=== PATIENT | male | born 1985 | race Hispanic/Latino ===

== ENCOUNTER 2019-09-17 16:49 | Inpatient (IN) | payer OTHER, SELFPAY ==
[~2019-09-17] VITALS: Ht 165.1 cm; Wt 92.1 kg
[2019-09-17 17:14] LABS: BASOPHILS % (AUTO) 0.3 % (0.0-5.0); EOSINOPHILS % (AUTO) 0.2 % (0.0-8.0); HEMATOCRIT 48.7 % (42-54); LYMPHOCYTES % (AUTO) 14.8 % (21.0-51.0); MEAN CORPUSCULAR HEMOGLOBIN 31.4 pg (27.0-33.0); MEAN CORPUSCULAR HGB CONC 35.3 g/dL (32.0-36.0); MEAN CORPUSCULAR VOLUME 88.9 fL (79-99); MONOCYTES % (AUTO) 2.2 % (3.0-13.0); PLATELET COUNT (AUTO) 195 K/uL (130-400); RED BLOOD CELL COUNT(AUTO) 5.48 MIL/uL (4.50-6.20); WHITE BLOOD COUNT (AUTO) 5.8 K/uL (4.8-10.8)
[2019-09-17 17:21] LABS: CARBON DIOXIDE 25 mmol/L (21-32); CHLORIDE 96 mmol/L (101-111); CREATININE 1.2 mg/dL (0.5-1.5); GLOMERULAR FILTR. RATE CALC 73 mL/min (>60); GLUCOSE,RANDOM 150 mg/dL (70-105); POTASSIUM 3.4 mmol/L (3.5-5.1); SODIUM SERUM 132 mmol/L (136-145); UREA NITROGEN, BLOOD 11 mg/dL (7-18)
[2019-09-17 17:24] LABS: INR 0.88 (0.85-1.15); PARTIAL THROMBOPLASTIN TIME 25.9 SEC (26.3-35.5); PROTHROMBIN TIME 9.6 SEC (9.6-11.6)
[2019-09-17] MEDS ORDERED: ALBUTEROL INHALER 90MCG/INH IH ONE (17:27)
[2019-09-17] MEDS ORDERED: METHYLPREDNISOLONE SOD SUCC 40MG/ML 1ML ONE (17:27)
[2019-09-17] MEDS ORDERED: POTASSIUM BICARB/CIT AC 25 MEQ TABLET.EFF ONE (17:27)
[2019-09-17] MEDS ORDERED: AZITHROMYCIN 500MG+NS 250ML 250 ML IV ONE (17:27)
[2019-09-17] MEDS ORDERED: ACETAMINOPHEN EXTRA STRENGTH 500 MG TABLET ONE (17:28)
[2019-09-17] MEDS ORDERED: CEFTRIAXONE SODIUM 1 GM ONE (17:28)
[2019-09-17 17:32] LABS: ALANINE AMINOTRANSFERASE 71 U/L (12-78); ALBUMIN 3.4 g/dL (3.5-5.0); ASPARTATE AMINOTRANSFERASE 72 U/L (10-37); BILIRUBIN,TOTAL 0.7 mg/dL (0.2-1.0); CREATINE KINASE, TOTAL 97 U/L (21-232); MYOGLOBIN 35 ng/mL (10-92); TROPONIN I < 0.04 ng/mL (0.00-0.06)
[2019-09-17] MEDS: SODIUM CHLORIDE 0.9% 1000ML 1,000 ML IV SCH (19:37)
[2019-09-17] MEDS ORDERED: ONDANSETRON HCL 4 MG/2 ML VIAL IV PRN (19:45)
[2019-09-17] MEDS ORDERED: ACETAMINOPHEN 325 MG TAB PO PRN ×2 (19:45)
[2019-09-17] MEDS ORDERED: DIPHENHYDRAMINE HCL 25 MG CAPSULE PO PRN (19:45)
[2019-09-17] MEDS ORDERED: NITROGLYCERIN 0.4 MG SL TAB SL PRN (19:45)
[2019-09-17] MEDS ORDERED: SODIUM CHLORIDE 0.9% 1000ML 1,000 ML IV SCH ×3 (19:45→20:00)
[2019-09-17 19:49] LABS: ABG BASE EXCESS -4.6 mmol/L (-2.0-3.0); ABG OXYGEN SATURATION 84.1 % (95.0-99.0); ABG PCO2 31 mmHg (35-48)
[2019-09-17] MEDS ORDERED: IOHEXOL 350 MG/ML 100ML INFUS..BTL IV ONE (19:51)
[2019-09-17 19:54] LABS: HEMOGLOBIN A1C 6.2 % (4.0-6.0)
[2019-09-17 20:16] LABS: APPEARANCE,URINE Clear (CLEAR); BILIRUBIN,URINE Negative (NEGATIVE); COLOR,URINE Yellow (YELLOW); GLUCOSE, URINE (UA) Negative (NEGATIVE); KETONES,URINE Negative (NEGATIVE); LEUKOCYTE ESTERASE ,URINE Negative (NEGATIVE); NITRATE,URINE Negative (NEGATIVE); OCCULT BLOOD,URINE Negative (NEGATIVE); PH,URINE 6.5 (5.0-8.0); PROTEIN,URINE Negative (NEGATIVE); UROBILINOGEN,URINE 0.2 mg/dL (0.2-1.0)
[2019-09-17] MEDS: FAMOTIDINE 20MG TAB 20 MG TAB PO SCH (21:00)
[2019-09-17 21:35] LABS: CREATINE KINASE, TOTAL 77 U/L (21-232); LACTATE DEHYDROGENASE 799 U/L (81-234); MYOGLOBIN 41 ng/mL (10-92); TRIGLYCERIDES 179 mg/dL (30-200); TROPONIN I < 0.04 ng/mL (0.00-0.06)
[2019-09-18] MEDS ORDERED: ONDANSETRON HCL 4 MG/2 ML VIAL ONE (00:52)
[2019-09-18] MEDS: METHYLPREDNISOLONE SOD SUCC 40MG/ML 1ML IVP SCH ×3 (02:00→18:00)
[2019-09-18] MEDS ORDERED: METHYLPREDNISOLONE SOD SUCC 40MG/ML 1ML ONE ×3 (02:08→16:40)
[2019-09-18] MEDS: SODIUM CHLORIDE 0.9% 1000ML 1,000 ML IV SCH ×2 (05:37→15:37)
[2019-09-18 06:31] LABS: ABG BASE EXCESS -4.5 mmol/L (-2.0-3.0); ABG HCO3 19.2 mmol/L (21.0-28.0); ABG OXYGEN SATURATION 87.4 % (95.0-99.0); ABG PCO2 32 mmHg (35-48)
[2019-09-18 07:19] LABS: HEMATOCRIT 46.7 % (42-54); MEAN CORPUSCULAR HEMOGLOBIN 30.7 pg (27.0-33.0); MEAN CORPUSCULAR VOLUME 90.2 fL (79-99); PLATELET COUNT (AUTO) 206 K/uL (130-400); RED BLOOD CELL COUNT(AUTO) 5.18 MIL/uL (4.50-6.20); RED CELL DISTRIBUTION WIDTH 13.2 % (11.0-15.5)
[2019-09-18 07:47] LABS: ALBUMIN 2.7 g/dL (3.5-5.0); BILIRUBIN,TOTAL 0.5 mg/dL (0.2-1.0); CREATININE 1.1 mg/dL (0.5-1.5); POTASSIUM 5.3 mmol/L (3.5-5.1); TOTAL PROTEIN, SERUM 6.8 g/dL (6.0-8.3)
[2019-09-18 08:42] LABS: BAND NEUTROPHILS % (MANUAL) 1 % (0-2); LYMPHOCYTES % (MANUAL) 10 % (22-44); MAN.DIFF COMMENT-IMPRESSION MANUAL DIFFERENTIAL; MONOCYTES % (MANUAL) 2 % (2-9); SEGMENTED NEUTROPHILS % 87 % (40-70)
[2019-09-18 08:47] LABS: PLATELET MORPHOLOGY COMMENT ADEQUATE
[2019-09-18] MEDS ORDERED: AZITHROMYCIN 500MG+NS 250ML 250 ML IV ONE (08:54)
[2019-09-18] MEDS ORDERED: CEFTRIAXONE SODIUM 1 GM ONE (08:54)
[2019-09-18] MEDS ORDERED: ENOXAPARIN SODIUM 40 MG/0.4 ML SYRINGE SQ ONE (08:54)
[2019-09-18] MEDS ORDERED: SODIUM CHLORIDE 0.9% 50 ML IV ONE (08:55)
[2019-09-18] MEDS: FAMOTIDINE 20MG TAB 20 MG TAB PO SCH ×2 (09:00→21:00)
[2019-09-18] MEDS: CEFTRIAXONE SODIUM 500 MG VIAL IV SCH (09:00)
[2019-09-18] MEDS: AZITHROMYCIN 500MG+NS 250ML 250 ML IV SCH (09:00)
[2019-09-18] MEDS ORDERED: ENOXAPARIN SODIUM 40 MG/0.4 ML SYRINGE SQ SCH (09:00)
--- NOTE | 2019-09-18 13:33 | NUR ---
[facility] CM spoke to spouse discussed dc plans. Pt is independent prior to admission, lives at home with spouse Denies any equipments/services. Feels safe to go back home, still drives, family able to assist with transportation and needs as necessary. DC plan to home once stable. Pt is a self pay, HAC assisting. CM to cont to follow up. Addendum: 09/18/19 at 1336 by RASHEED URBAN LVN CM Amended: Links added.
[2019-09-19] MEDS ORDERED: METHYLPREDNISOLONE SOD SUCC 40MG/ML 1ML ONE ×3 (01:05→15:49)
[2019-09-19] MEDS: SODIUM CHLORIDE 0.9% 1000ML 1,000 ML IV SCH ×3 (01:37→21:37)
[2019-09-19] MEDS: METHYLPREDNISOLONE SOD SUCC 40MG/ML 1ML IVP SCH ×3 (02:00→18:00)
[2019-09-19 04:50] LABS: BASOPHILS % (AUTO) 0.2 % (0.0-5.0); HEMATOCRIT 46.5 % (42-54); LYMPHOCYTES % (AUTO) 7.4 % (21.0-51.0); MEAN CORPUSCULAR HEMOGLOBIN 31.1 pg (27.0-33.0); MEAN CORPUSCULAR HGB CONC 34.2 g/dL (32.0-36.0); MEAN CORPUSCULAR VOLUME 90.8 fL (79-99); MONOCYTES % (AUTO) 2.6 % (3.0-13.0); NEUTROPHILS % (AUTO) 88.7 % (40.0-77.0); PLATELET COUNT (AUTO) 250 K/uL (130-400); RED BLOOD CELL COUNT(AUTO) 5.12 MIL/uL (4.50-6.20); RED CELL DISTRIBUTION WIDTH 13.2 % (11.0-15.5); WHITE BLOOD COUNT (AUTO) 9.5 K/uL (4.8-10.8)
[2019-09-19 05:36] LABS: ALBUMIN 2.7 g/dL (3.5-5.0); BILIRUBIN,TOTAL 0.5 mg/dL (0.2-1.0); CREATININE 1.1 mg/dL (0.5-1.5); CRP QUANTITATIVE 84.1 mg/L (0.00-9.0); POTASSIUM 4.6 mmol/L (3.5-5.1); TOTAL PROTEIN, SERUM 6.8 g/dL (6.0-8.3)
[2019-09-19 07:35] LABS: ABG BASE EXCESS -3.4 mmol/L (-2.0-3.0); ABG HCO3 19.6 mmol/L (21.0-28.0); ABG OXYGEN SATURATION 78.8 % (95.0-99.0); ABG PCO2 30 mmHg (35-48)
[2019-09-19] MEDS: AZITHROMYCIN 500MG+NS 250ML 250 ML IV SCH (09:00)
[2019-09-19] MEDS: CEFTRIAXONE SODIUM 500 MG VIAL IV SCH (09:00)
[2019-09-19] MEDS: FAMOTIDINE 20MG TAB 20 MG TAB PO SCH ×2 (09:00→21:00)
[2019-09-19] MEDS ORDERED: FAMOTIDINE/PF 20 MG/2 ML VIAL IV ONE (09:18)
[2019-09-19] MEDS ORDERED: CEFTRIAXONE SODIUM 1 GM ONE (09:18)
[2019-09-19] MEDS ORDERED: ENOXAPARIN SODIUM 40 MG/0.4 ML SYRINGE SQ ONE (09:18)
[2019-09-19] MEDS ORDERED: AZITHROMYCIN 500MG+NS 250ML 250 ML IV ONE (09:18)
[2019-09-19 19:41] LABS: ABG BASE EXCESS -0.4 mmol/L (-2.0-3.0); ABG HCO3 23.2 mmol/L (21.0-28.0); ABG OXYGEN SATURATION 82.6 % (95.0-99.0); ABG PCO2 35 mmHg (35-48)
[2019-09-19] MEDS: ENOXAPARIN SODIUM 80 MG/0.8 ML SQ SCH (21:00)
[2019-09-20] VITALS (7 sets, daily range): BP systolic 135–157; BP diastolic 20–95
[2019-09-20] MEDS ORDERED: METHYLPREDNISOLONE SOD SUCC 40MG/ML 1ML ONE (00:42)
[2019-09-20] MEDS: SODIUM CHLORIDE 0.9% 1000ML 1,000 ML IV SCH ×2 (04:01→04:02)
[2019-09-20] MEDS: METHYLPREDNISOLONE SOD SUCC 40MG/ML 1ML IVP SCH ×3 (04:02→16:43)
[2019-09-20 08:29] LABS: BASOPHILS % (AUTO) 0.6 % (0.0-5.0); EOSINOPHILS % (AUTO) 0.8 % (0.0-8.0); HEMATOCRIT 45.8 % (42-54); LYMPHOCYTES % (AUTO) 9.2 % (21.0-51.0); MEAN CORPUSCULAR HEMOGLOBIN 31.7 pg (27.0-33.0); MEAN CORPUSCULAR HGB CONC 34.9 g/dL (32.0-36.0); MEAN CORPUSCULAR VOLUME 90.7 fL (79-99); MONOCYTES % (AUTO) 2.9 % (3.0-13.0); NEUTROPHILS % (AUTO) 84.5 % (40.0-77.0); PLATELET COUNT (AUTO) 186 K/uL (130-400); RED BLOOD CELL COUNT(AUTO) 5.05 MIL/uL (4.50-6.20); RED CELL DISTRIBUTION WIDTH 13.3 % (11.0-15.5); WHITE BLOOD COUNT (AUTO) 8.9 K/uL (4.8-10.8)
[2019-09-20 08:47] LABS: ALBUMIN 2.7 g/dL (3.5-5.0); BILIRUBIN,TOTAL 0.7 mg/dL (0.2-1.0); CREATININE 1.1 mg/dL (0.5-1.5); CRP QUANTITATIVE 34.5 mg/L (0.00-9.0); POTASSIUM 4.1 mmol/L (3.5-5.1); TOTAL PROTEIN, SERUM 6.3 g/dL (6.0-8.3)
[2019-09-20] MEDS: ENOXAPARIN SODIUM 80 MG/0.8 ML SQ SCH (08:59)
[2019-09-20] MEDS: FAMOTIDINE 20MG TAB 20 MG TAB PO SCH ×2 (08:59→20:11)
[2019-09-20] MEDS: CEFTRIAXONE SODIUM 500 MG VIAL IV SCH (08:59)
[2019-09-20] MEDS: AZITHROMYCIN 500MG+NS 250ML 250 ML IV SCH (08:59)
--- NOTE | 2019-09-20 11:00 | NUR ---
PT VISIBLY SOB AT THE MOMENT OF EVALUATION, WAS EDUCATED ABOUT TREATMENT AND ENCOURAGE TO LAY IN PRONE POSITION FOR A BETTER GAS EXCHANGE IN HIS LUNGS AND FURTHER IMPROVEMENT OF HIS CONDITION.
[2019-09-20] MEDS ORDERED: REMDESIVIR (INVESTIGATIONAL) 100 MG/250ML NS IV SCH (11:15)
--- NOTE | 2019-09-20 14:30 | NUR ---
DR. VALERIO ROUND AND EVALUATED THE PT.
[2019-09-20] MEDS ORDERED: CALCIUM CARBON 500MG CHEW TAB PO SCH (15:45)
[2019-09-20] MEDS ORDERED: CALCIUM CARBON 500MG CHEW TAB PO PRN (15:45)
[2019-09-20] MEDS: ENOXAPARIN SODIUM 100 MG/1 ML SQ SCH (20:10)
[2019-09-20] MEDS ORDERED: ENOXAPARIN SODIUM 1 MG/KG SQ SCH (21:00)
[2019-09-21] MEDS: METHYLPREDNISOLONE SOD SUCC 40MG/ML 1ML IVP SCH ×2 (02:10→09:04)
[2019-09-21] MEDS: ALBUTEROL INHALER 90MCG/INH IH SCH ×5 (02:56→16:29)
[2019-09-21 03:36] VITALS: BP 150/83
[2019-09-21] MEDS: SODIUM CHLORIDE 0.9% 1000ML 1,000 ML IV SCH ×2 (03:37→06:08)
--- NOTE | 2019-09-21 05:10 | NUR ---
PT SOB AT REST. CONT ON HIGH FLOW. STATES HE IS UNABLE TO AMBULATE TO RR. ONLY BEDSIDE COMMODE. FEELS VERY WEAK.
[2019-09-21 06:09] LABS: BASOPHILS % (AUTO) 0.5 % (0.0-5.0); EOSINOPHILS % (AUTO) 0.2 % (0.0-8.0); HEMATOCRIT 44.5 % (42-54); LYMPHOCYTES % (AUTO) 8.4 % (21.0-51.0); MEAN CORPUSCULAR HEMOGLOBIN 30.8 pg (27.0-33.0); MEAN CORPUSCULAR HGB CONC 34.6 g/dL (32.0-36.0); MONOCYTES % (AUTO) 3.9 % (3.0-13.0); NEUTROPHILS % (AUTO) 82.4 % (40.0-77.0); PLATELET COUNT (AUTO) 220 K/uL (130-400); RED CELL DISTRIBUTION WIDTH 13.1 % (11.0-15.5); WHITE BLOOD COUNT (AUTO) 10.5 K/uL (4.8-10.8)
[2019-09-21 06:19] LABS: ALBUMIN 2.7 g/dL (3.5-5.0); BILIRUBIN,TOTAL 0.9 mg/dL (0.2-1.0); CREATININE 0.9 mg/dL (0.5-1.5); CRP QUANTITATIVE 18.5 mg/L (0.00-9.0); POTASSIUM 3.9 mmol/L (3.5-5.1); TOTAL PROTEIN, SERUM 6.5 g/dL (6.0-8.3)
[2019-09-21] MEDS ORDERED: CEFTRIAXONE SODIUM 1 GM ONE (08:13)
[2019-09-21] MEDS ORDERED: FAMOTIDINE/PF 20 MG/2 ML VIAL IV ONE (08:16)
[2019-09-21 09:00] VITALS: BP 155/88
[2019-09-21] MEDS: FAMOTIDINE 20MG TAB 20 MG TAB PO SCH (09:00)
[2019-09-21] MEDS: CEFTRIAXONE SODIUM 500 MG VIAL IV SCH (09:00)
[2019-09-21] MEDS: AZITHROMYCIN 500MG+NS 250ML 250 ML IV SCH (09:03)
[2019-09-21] MEDS: ENOXAPARIN SODIUM 100 MG/1 ML SQ SCH ×2 (09:04→20:58)
[2019-09-21] MEDS: METHYLPREDNISOLONE SOD SUCC 125MG/2ML VIAL IVP SCH ×3 (10:00→20:58)
[2019-09-21 12:48] VITALS: BP 151/86
[2019-09-21 16:23] VITALS: BP 142/79
[2019-09-21 20:00] VITALS: BP 147/77
[2019-09-22] VITALS (7 sets, daily range): BP systolic 119–158; BP diastolic 68–98
[2019-09-22] MEDS: ALBUTEROL INHALER 90MCG/INH IH SCH ×6 (02:38→20:00)
[2019-09-22] MEDS: METHYLPREDNISOLONE SOD SUCC 125MG/2ML VIAL IVP SCH ×4 (04:42→22:00)
[2019-09-22 04:56] LABS: BASOPHILS % (AUTO) 0.6 % (0.0-5.0); HEMATOCRIT 45.6 % (42-54); LYMPHOCYTES % (AUTO) 11.3 % (21.0-51.0); MEAN CORPUSCULAR HEMOGLOBIN 31.1 pg (27.0-33.0); MEAN CORPUSCULAR HGB CONC 35.1 g/dL (32.0-36.0); MEAN CORPUSCULAR VOLUME 88.7 fL (79-99); NEUTROPHILS % (AUTO) 76.1 % (40.0-77.0); NUCLEATED RED BLOOD CELLS 0.2 % (0.0-0.19); PLATELET COUNT (AUTO) 252 K/uL (130-400); RED BLOOD CELL COUNT(AUTO) 5.14 MIL/uL (4.50-6.20); RED CELL DISTRIBUTION WIDTH 12.8 % (11.0-15.5); WHITE BLOOD COUNT (AUTO) 8.9 K/uL (4.8-10.8)
[2019-09-22 05:14] LABS: CRP QUANTITATIVE 24.9 mg/L (0.00-9.0); POTASSIUM 4.2 mmol/L (3.5-5.1)
[2019-09-22] MEDS: AZITHROMYCIN 500MG+NS 250ML 250 ML IV SCH (08:24)
[2019-09-22] MEDS: PANTOPRAZOLE SODIUM 40 MG TABLET.DR PO SCH (08:24)
[2019-09-22] MEDS: ENOXAPARIN SODIUM 100 MG/1 ML SQ SCH ×2 (08:25→21:00)
[2019-09-22] MEDS: CEFTRIAXONE SODIUM 500 MG VIAL IV SCH (13:50)
[2019-09-23] MEDS: ALBUTEROL INHALER 90MCG/INH IH SCH ×7 (00:45→23:39)
[2019-09-23 04:02] VITALS: BP 148/80
[2019-09-23] MEDS: METHYLPREDNISOLONE SOD SUCC 125MG/2ML VIAL IVP SCH ×4 (04:12→22:18)
[2019-09-23 05:05] LABS: BASOPHILS % (AUTO) 0.4 % (0.0-5.0); HEMATOCRIT 43.7 % (42-54); LYMPHOCYTES % (AUTO) 8.2 % (21.0-51.0); MEAN CORPUSCULAR HEMOGLOBIN 30.4 pg (27.0-33.0); MEAN CORPUSCULAR HGB CONC 34.6 g/dL (32.0-36.0); MEAN CORPUSCULAR VOLUME 88.1 fL (79-99); MONOCYTES % (AUTO) 3.4 % (3.0-13.0); NUCLEATED RED BLOOD CELLS 0.3 % (0.0-0.19); PLATELET COUNT (AUTO) 273 K/uL (130-400); RED BLOOD CELL COUNT(AUTO) 4.96 MIL/uL (4.50-6.20); RED CELL DISTRIBUTION WIDTH 12.9 % (11.0-15.5); WHITE BLOOD COUNT (AUTO) 11.6 K/uL (4.8-10.8)
[2019-09-23 08:39] VITALS: BP 146/87
[2019-09-23] MEDS: CEFTRIAXONE SODIUM 500 MG VIAL IV SCH (09:21)
[2019-09-23] MEDS: AZITHROMYCIN 500MG+NS 250ML 250 ML IV SCH (09:23)
[2019-09-23] MEDS: PANTOPRAZOLE SODIUM 40 MG TABLET.DR PO SCH (09:23)
[2019-09-23] MEDS: ENOXAPARIN SODIUM 100 MG/1 ML SQ SCH ×2 (09:25→20:35)
[2019-09-23 12:26] VITALS: BP 155/83
[2019-09-23 16:39] VITALS: BP 146/87
[2019-09-23 19:58] VITALS: BP 146/78
[2019-09-24] VITALS: BP 137/95
[2019-09-24 03:50] VITALS: BP 132/74
[2019-09-24] MEDS: METHYLPREDNISOLONE SOD SUCC 125MG/2ML VIAL IVP SCH ×4 (05:29→23:51)
[2019-09-24] MEDS: ALBUTEROL INHALER 90MCG/INH IH SCH ×5 (05:29→20:00)
--- NOTE | 2019-09-24 06:51 | NUR ---
patient refused transfusion, explained benefits but states he still needs to think about it and will decide if he will go through with the transfusion. will pass to the am nurse
[2019-09-24 07:55] VITALS: BP 126/79
[2019-09-24] MEDS: AZITHROMYCIN 500MG+NS 250ML 250 ML IV SCH (09:12)
[2019-09-24] MEDS: CEFTRIAXONE SODIUM 500 MG VIAL IV SCH (09:13)
[2019-09-24] MEDS: PANTOPRAZOLE SODIUM 40 MG TABLET.DR PO SCH (09:13)
[2019-09-24] MEDS: ENOXAPARIN SODIUM 100 MG/1 ML SQ SCH ×2 (09:14→21:39)
[2019-09-24 10:26] LABS: HEMATOCRIT 45.4 % (42-54); MEAN CORPUSCULAR HEMOGLOBIN 31.5 pg (27.0-33.0); MEAN CORPUSCULAR HGB CONC 35.5 g/dL (32.0-36.0); MEAN CORPUSCULAR VOLUME 88.8 fL (79-99); NUCLEATED RED BLOOD CELLS 0.2 % (0.0-0.19); PLATELET COUNT (AUTO) 290 K/uL (130-400); RED BLOOD CELL COUNT(AUTO) 5.11 MIL/uL (4.50-6.20); RED CELL DISTRIBUTION WIDTH 12.8 % (11.0-15.5)
[2019-09-24 10:31] LABS: CARBON DIOXIDE 27 mmol/L (21-32); CHLORIDE 101 mmol/L (101-111); CREATININE 1.1 mg/dL (0.5-1.5); GLOMERULAR FILTR. RATE CALC 81 mL/min (>60); GLUCOSE,RANDOM 169 mg/dL (70-105); SODIUM SERUM 135 mmol/L (136-145); UREA NITROGEN, BLOOD 23 mg/dL (7-18)
[2019-09-24 10:36] LABS: ALANINE AMINOTRANSFERASE 69 U/L (12-78); ALBUMIN 2.4 g/dL (3.5-5.0); ASPARTATE AMINOTRANSFERASE 34 U/L (10-37); BILIRUBIN,TOTAL 0.6 mg/dL (0.2-1.0); LACTATE DEHYDROGENASE 620 U/L (81-234)
[2019-09-24 10:37] LABS: CRP QUANTITATIVE < 2.00 mg/L (0.00-9.0)
[2019-09-24 10:41] LABS: EOSINOPHILS % (MANUAL) 1 % (1-6); LYMPHOCYTES % (MANUAL) 3 % (22-44); MAN.DIFF COMMENT-IMPRESSION MANUAL DIFFERENTIAL; MONOCYTES % (MANUAL) 10 % (2-9); SEGMENTED NEUTROPHILS % 86 % (40-70)
[2019-09-24 10:42] LABS: PLATELET MORPHOLOGY COMMENT ADEQUATE
[2019-09-24 11:49] VITALS: BP 107/61
[2019-09-24 17:24] VITALS: BP 150/85
[2019-09-24 20:00] VITALS: BP 146/80
[2019-09-25] VITALS: BP 127/80
[2019-09-25] MEDS: ALBUTEROL INHALER 90MCG/INH IH SCH ×6 (00:09→21:08)
[2019-09-25 04:00] VITALS: BP 122/70
[2019-09-25] MEDS: METHYLPREDNISOLONE SOD SUCC 125MG/2ML VIAL IVP SCH ×3 (04:28→21:00)
[2019-09-25 04:47] LABS: HEMATOCRIT 44.6 % (42-54); MEAN CORPUSCULAR HEMOGLOBIN 31.6 pg (27.0-33.0); MEAN CORPUSCULAR HGB CONC 35.9 g/dL (32.0-36.0); PLATELET COUNT (AUTO) 306 K/uL (130-400); RED BLOOD CELL COUNT(AUTO) 5.07 MIL/uL (4.50-6.20); RED CELL DISTRIBUTION WIDTH 12.9 % (11.0-15.5); WHITE BLOOD COUNT (AUTO) 9.3 K/uL (4.8-10.8)
[2019-09-25 05:00] LABS: ALBUMIN 2.5 g/dL (3.5-5.0); BILIRUBIN,TOTAL 0.7 mg/dL (0.2-1.0); CREATININE 0.9 mg/dL (0.5-1.5); CRP QUANTITATIVE 14.2 mg/L (0.00-9.0); POTASSIUM 4.2 mmol/L (3.5-5.1); TOTAL PROTEIN, SERUM 6.1 g/dL (6.0-8.3)
[2019-09-25 06:03] LABS: BAND NEUTROPHILS % (MANUAL) 3 % (0-2); LYMPHOCYTES % (MANUAL) 4 % (22-44); MONOCYTES % (MANUAL) 3 % (2-9); SEGMENTED NEUTROPHILS % 90 % (40-70)
[2019-09-25 06:04] LABS: MAN.DIFF COMMENT-IMPRESSION MANUAL DIFFERENTIAL
[2019-09-25 06:05] LABS: PLATELET MORPHOLOGY COMMENT ADEQUATE
[2019-09-25 08:27] VITALS: BP 122/87
[2019-09-25] MEDS ORDERED: SODIUM CHLORIDE 0.9% 250 ML IV ONE (09:33)
[2019-09-25] MEDS: CEFTRIAXONE SODIUM 500 MG VIAL IV SCH (09:47)
[2019-09-25] MEDS: PANTOPRAZOLE SODIUM 40 MG TABLET.DR PO SCH (09:48)
[2019-09-25] MEDS: ENOXAPARIN SODIUM 100 MG/1 ML SQ SCH ×2 (09:48→21:01)
--- NOTE | 2019-09-25 12:42 | NUR ---
RDSCREEN - LOS X 8 Pt admitted with CAP, positive for COVID-19. Pt with Heart Healthy diet order in place and tolerating with 100%PO intake. Pt with elevated BG, LDH, Ferritin, and abnormal LFT's. Antibiotics in place. Obesity Class I. Recommend 75gm CC diet modification Recommend 60mL ProMod Recommend 500mg Vitamin C (BID), 220mg ZnSO4 (QD). RD to continue to monitor. Please notify as additional nutrition concerns arise. Thank you.
[2019-09-25 12:53] VITALS: BP 120/86
[2019-09-25 15:46] VITALS: BP 127/82
[2019-09-25 21:00] VITALS: BP 145/86
[2019-09-26] MEDS: ALBUTEROL INHALER 90MCG/INH IH SCH ×6 (00:06→20:04)
[2019-09-26 00:50] VITALS: BP 148/96
[2019-09-26 04:54] VITALS: BP 121/78
[2019-09-26 07:21] LABS: BASOPHILS % (AUTO) 0.6 % (0.0-5.0); EOSINOPHILS % (AUTO) 0.3 % (0.0-8.0); HEMATOCRIT 44.9 % (42-54); LYMPHOCYTES % (AUTO) 10.3 % (21.0-51.0); MEAN CORPUSCULAR HEMOGLOBIN 30.8 pg (27.0-33.0); MONOCYTES % (AUTO) 4.4 % (3.0-13.0); NEUTROPHILS % (AUTO) 77.2 % (40.0-77.0); PLATELET COUNT (AUTO) 316 K/uL (130-400); RED CELL DISTRIBUTION WIDTH 13.1 % (11.0-15.5); WHITE BLOOD COUNT (AUTO) 11.5 K/uL (4.8-10.8)
[2019-09-26 07:46] LABS: ALANINE AMINOTRANSFERASE 94 U/L (12-78); ALBUMIN 2.7 g/dL (3.5-5.0); ASPARTATE AMINOTRANSFERASE 34 U/L (10-37); BILIRUBIN,TOTAL 0.8 mg/dL (0.2-1.0); CARBON DIOXIDE 26 mmol/L (21-32); CHLORIDE 102 mmol/L (101-111); GLOMERULAR FILTR. RATE CALC 90 mL/min (>60); GLUCOSE,RANDOM 146 mg/dL (70-105); LACTATE DEHYDROGENASE 502 U/L (81-234); POTASSIUM 4.6 mmol/L (3.5-5.1); SODIUM SERUM 136 mmol/L (136-145); TOTAL PROTEIN, SERUM 6.2 g/dL (6.0-8.3); UREA NITROGEN, BLOOD 23 mg/dL (7-18)
[2019-09-26 07:56] LABS: CRP QUANTITATIVE < 2.00 mg/L (0.00-9.0)
[2019-09-26 08:00] VITALS: BP 122/83
--- NOTE | 2019-09-26 08:00 | NUR ---
ASSESSMENT ENCOUNTERED PT IN SEMI TRUONG'S POSITION, A&OX3, CALM COOPERATIVE AND DOES NOT APPEAR TO BE IN ANY DISTRESS NOR ANY NEURO DEFICITS PRESENT. PT DENIES PAIN, SOB, NAUSEA. PT IS ON 2LNC WITH O2 SATS 85%, INCREASED TO 4LNC AND O2 SATS IMPROVED TO 89%, PT STATES HE CONTINUES TO FEEL COMFORTABLE BUT INFORMED HIM THAT HE WILL BE RETURNED TO [facility] FOR BETTER OXYGENATION, O2SATS WITH [facility] 91% AT REST. CALL LIGHT WITHIN REACH.
[2019-09-26] MEDS: ASCORBIC ACID 500 MG TAB PO SCH (08:03)
[2019-09-26] MEDS: ENOXAPARIN SODIUM 100 MG/1 ML SQ SCH ×2 (08:03→20:44)
[2019-09-26] MEDS: CEFTRIAXONE SODIUM 500 MG VIAL IV SCH (08:04)
[2019-09-26] MEDS: PANTOPRAZOLE SODIUM 40 MG TABLET.DR PO SCH (08:04)
[2019-09-26] MEDS: METHYLPREDNISOLONE SOD SUCC 125MG/2ML VIAL IVP SCH (08:04)
[2019-09-26 16:00] VITALS: BP 114/89
[2019-09-26 20:16] VITALS: BP 121/75
[2019-09-26] MEDS ORDERED: METHYLPREDNISOLONE SOD SUCC 40MG/ML 1ML IVP SCH (21:00)
[2019-09-27] MEDS: ALBUTEROL INHALER 90MCG/INH IH SCH ×6 (00:01→19:15)
[2019-09-27 01:11] VITALS: BP 141/84
[2019-09-27 04:13] VITALS: BP 109/62
[2019-09-27 06:14] LABS: HEMATOCRIT 47.3 % (42-54); MEAN CORPUSCULAR HGB CONC 34.9 g/dL (32.0-36.0); MEAN CORPUSCULAR VOLUME 88.9 fL (79-99); PLATELET COUNT (AUTO) 342 K/uL (130-400); RED BLOOD CELL COUNT(AUTO) 5.32 MIL/uL (4.50-6.20); RED CELL DISTRIBUTION WIDTH 13.2 % (11.0-15.5); WHITE BLOOD COUNT (AUTO) 10.9 K/uL (4.8-10.8)
[2019-09-27 07:55] LABS: LYMPHOCYTES % (MANUAL) 10 % (22-44); MAN.DIFF COMMENT-IMPRESSION MANUAL DIFFERENTIAL; MONOCYTES % (MANUAL) 8 % (2-9); PLATELET MORPHOLOGY COMMENT ADEQUATE; SEGMENTED NEUTROPHILS % 82 % (40-70)
[2019-09-27 08:00] VITALS: BP 115/73
[2019-09-27] MEDS: ASCORBIC ACID 500 MG TAB PO SCH (08:38)
[2019-09-27] MEDS: CEFTRIAXONE SODIUM 500 MG VIAL IV SCH (08:38)
[2019-09-27] MEDS: PANTOPRAZOLE SODIUM 40 MG TABLET.DR PO SCH (08:38)
[2019-09-27] MEDS: ENOXAPARIN SODIUM 100 MG/1 ML SQ SCH ×2 (08:39→20:34)
[2019-09-27] MEDS ORDERED: DEXAMETHASONE 4 MG TAB PO SCH (09:10)
[2019-09-27] MEDS: DEXAMETHASONE 4 MG TAB PO SCH ×2 (10:55→20:33)
[2019-09-27 11:42] VITALS: BP 104/64
[2019-09-27 12:06] LABS: ALBUMIN 2.9 g/dL (3.5-5.0); BILIRUBIN,TOTAL 0.9 mg/dL (0.2-1.0); CREATININE 0.9 mg/dL (0.5-1.5); CRP QUANTITATIVE 6.2 mg/L (0.00-9.0); POTASSIUM 4.3 mmol/L (3.5-5.1); TOTAL PROTEIN, SERUM 6.4 g/dL (6.0-8.3)
[2019-09-27 15:33] VITALS: BP 120/72
[2019-09-27 20:54] VITALS: BP 134/78
[2019-09-28] VITALS (7 sets, daily range): BP systolic 98–122; BP diastolic 59–77
[2019-09-28] MEDS: ALBUTEROL INHALER 90MCG/INH IH SCH ×6 (04:32→20:01)
[2019-09-28 06:34] LABS: HEMATOCRIT 46.6 % (42-54); MEAN CORPUSCULAR HEMOGLOBIN 30.5 pg (27.0-33.0); MEAN CORPUSCULAR HGB CONC 34.5 g/dL (32.0-36.0); MEAN CORPUSCULAR VOLUME 88.3 fL (79-99); PLATELET COUNT (AUTO) 362 K/uL (130-400); RED BLOOD CELL COUNT(AUTO) 5.28 MIL/uL (4.50-6.20); RED CELL DISTRIBUTION WIDTH 13.2 % (11.0-15.5); WHITE BLOOD COUNT (AUTO) 11.7 K/uL (4.8-10.8)
[2019-09-28 06:39] LABS: ALBUMIN 2.8 g/dL (3.5-5.0); BILIRUBIN,TOTAL 1.1 mg/dL (0.2-1.0); CREATININE 0.9 mg/dL (0.5-1.5); CRP QUANTITATIVE 2.4 mg/L (0.00-9.0); POTASSIUM 4.5 mmol/L (3.5-5.1); TOTAL PROTEIN, SERUM 6.5 g/dL (6.0-8.3)
[2019-09-28 07:13] LABS: BAND NEUTROPHILS % (MANUAL) 4 % (0-2); EOSINOPHILS % (MANUAL) 1 % (1-6); LYMPHOCYTES % (MANUAL) 13 % (22-44); MAN.DIFF COMMENT-IMPRESSION MANUAL DIFFERENTIAL; MONOCYTES % (MANUAL) 5 % (2-9); PLATELET MORPHOLOGY COMMENT ADEQUATE; REACTIVE LYMPHOCYTES 4 % (0-0); SEGMENTED NEUTROPHILS % 73 % (40-70)
[2019-09-28] MEDS: LEVOFLOXACIN 750 MG/D5W 150 ML 150 ML IV SCH (08:20)
[2019-09-28] MEDS: DEXAMETHASONE 4 MG TAB PO SCH (08:21)
[2019-09-28] MEDS: ENOXAPARIN SODIUM 100 MG/1 ML SQ SCH ×2 (08:21→20:38)
[2019-09-28] MEDS: PANTOPRAZOLE SODIUM 40 MG TABLET.DR PO SCH (08:21)
[2019-09-28] MEDS: ASCORBIC ACID 500 MG TAB PO SCH (08:21)
--- NOTE | 2019-09-28 13:29 | NUR ---
Wean oxygen to 2lpm sating 93%. Will continue to monitor.
--- NOTE | 2019-09-28 16:27 | NUR ---
Pt 95% on 2lpm after proning. Turning oxygen off remain sating at 95%. Will continue to monitor.
--- NOTE | 2019-09-28 18:15 | NUR ---
Sating 93% on RA. No s/s of distress noted at this time. Will continue to monitor.
[2019-09-29 03:44] VITALS: BP 102/55
[2019-09-29] MEDS: ALBUTEROL INHALER 90MCG/INH IH SCH ×6 (04:00→20:10)
[2019-09-29 06:05] LABS: BASOPHILS % (AUTO) 0.9 % (0.0-5.0); EOSINOPHILS % (AUTO) 1.9 % (0.0-8.0); LYMPHOCYTES % (AUTO) 26.1 % (21.0-51.0); MEAN CORPUSCULAR HEMOGLOBIN 31.4 pg (27.0-33.0); MEAN CORPUSCULAR HGB CONC 35.3 g/dL (32.0-36.0); MEAN CORPUSCULAR VOLUME 88.8 fL (79-99); MONOCYTES % (AUTO) 7.4 % (3.0-13.0); NEUTROPHILS % (AUTO) 54.9 % (40.0-77.0); PLATELET COUNT (AUTO) 371 K/uL (130-400); RED BLOOD CELL COUNT(AUTO) 5.29 MIL/uL (4.50-6.20); RED CELL DISTRIBUTION WIDTH 13.2 % (11.0-15.5); WHITE BLOOD COUNT (AUTO) 11.6 K/uL (4.8-10.8)
[2019-09-29 06:32] LABS: ALBUMIN 2.8 g/dL (3.5-5.0); BILIRUBIN,TOTAL 1.2 mg/dL (0.2-1.0); CREATININE 1.1 mg/dL (0.5-1.5); CRP QUANTITATIVE 2.2 mg/L (0.00-9.0); POTASSIUM 4.3 mmol/L (3.5-5.1); TOTAL PROTEIN, SERUM 6.1 g/dL (6.0-8.3)
[2019-09-29 08:02] VITALS: BP 117/56
[2019-09-29] MEDS: PANTOPRAZOLE SODIUM 40 MG TABLET.DR PO SCH (09:05)
[2019-09-29] MEDS: ASCORBIC ACID 500 MG TAB PO SCH (09:05)
[2019-09-29] MEDS: DEXAMETHASONE 4 MG TAB PO SCH (09:06)
[2019-09-29] MEDS: LEVOFLOXACIN 750 MG/D5W 150 ML 150 ML IV SCH (09:06)
[2019-09-29] MEDS: ENOXAPARIN SODIUM 100 MG/1 ML SQ SCH ×2 (09:06→20:19)
--- NOTE | 2019-09-29 10:03 | NUR ---
Low oxygen sensor alerting. Pt sitting at the bedside eating breakfast on RA. Took morning meds along with inhaler. Oxygen saturation 80%. Changed the sensor and had pt lie prone on the bed. Oxygen still sating low 80's. Placed on NC 6lpm pt remain prone. Oxygen sats increased to 97% after more than 5 minutes. Decreased oxygen to 4lpm 92%. Dr. Guerra notified. Will continue to monitor.
[2019-09-29 11:59] VITALS: BP 100/60
[2019-09-29 15:35] VITALS: BP 112/71
--- NOTE | 2019-09-29 16:48 | NUR ---
Removed oxygen. Pt sating 100% on 2lpm, sating 95% on RA. Will continue to monitor.
[2019-09-29 19:33] VITALS: BP 100/66
[2019-09-29 23:36] VITALS: BP 105/73
[2019-09-30] MEDS: ALBUTEROL INHALER 90MCG/INH IH SCH ×4 (00:38→12:52)
[2019-09-30 03:45] VITALS: BP 106/66
[2019-09-30 08:30] VITALS: BP 108/64
[2019-09-30] MEDS: LEVOFLOXACIN 750 MG/D5W 150 ML 150 ML IV SCH (09:22)
[2019-09-30] MEDS: DEXAMETHASONE 4 MG TAB PO SCH (09:23)
[2019-09-30] MEDS: ENOXAPARIN SODIUM 100 MG/1 ML SQ SCH (09:23)
[2019-09-30] MEDS: PANTOPRAZOLE SODIUM 40 MG TABLET.DR PO SCH (09:23)
[2019-09-30] MEDS: ASCORBIC ACID 500 MG TAB PO SCH (10:44)
[2019-09-30 11:00] VITALS: BP 99/62
[2019-09-30] MEDS ORDERED: APIX2.5T PO (15:18)
[2019-09-30] MEDS ORDERED: DEXA6TAB PO (15:18)
[2019-09-30] MEDS ORDERED: LEVO500T2 PO (15:25)
[2019-09-30 16:00] VITALS: BP 115/68
--- NOTE | 2019-09-30 16:56 | NUR ---
Pt discharged. Provided discharge instructions. Quarantine x21 days per MD order. Wear a mask when around other members in the home. Provided education on discharge medications. Pt verbalized understanding. Pt to warehouse picker prescriptions from [facility]. IV, tele, pulse oximeter removed. No s/s of distress noted up discharge. Transported via wheelchair by charge, RN.
== END 2019-09-30 16:30 | disposition home or self-care (01) | DRG 177 ==
LOC: EDH 16:49 → EDHIP 16:50 → 2DH 09-20 01:10
PROVIDERS: ADMIT Family Medicine; ATTEND Family Medicine
PROC: 30233K1 Transfusion of Nonautologous Frozen Plasma into Peripheral Vein, Percutaneous Approach (ICD-10-PCS; principal; 2019-09-25)
DX: U07.1 COVID-19 (principal); J96.01 Acute respiratory failure with hypoxia; I50.33 Acute on chronic diastolic (congestive) heart failure; J12.89 Other viral pneumonia; E87.1 Hypo-osmolality and hyponatremia; E66.01 Morbid (severe) obesity due to excess calories; E87.6 Hypokalemia; K76.0 Fatty (change of) liver, not elsewhere classified; Z68.33 Body mass index [BMI] 33.0-33.9, adult; Z79.01 Long term (current) use of anticoagulants
CPT/HCPCS: 36415; 36430; 36600; 71045; 71275; 80048; 80053; 81003; 82550; 82728; 82803; 83036; 83605; 83615; 83735; 83874; 83880; 84145; 84478; 84484; 85025; 85378; 85384; 85610; 85730; 86140; 86850; 86900; 86901; 86927; 87040; 87071; 87077; 87088; 87186; 87205; 87449; 87804; 93005; 93970; 94760; 99291; G0378; J0456; J0696; J1650; J1956; J2405; J2920; J2930; J3490; J7030; J7050; J8540; P9017; Q9967; U0003

== ENCOUNTER 2020-11-21 14:39 | Emergency (ER) | payer OTHER, SELFPAY ==
[~2020-11-21] VITALS: Ht 165.1 cm; Wt 90.7 kg
[~2020-11-21 14:39] MED LIST: APIX2.5T PO; DEXA6TAB PO; LEVO500T2 PO
[2020-11-21 14:40] VITALS: BP 135/76
[2020-11-21] MEDS ORDERED: 0.9%NACL 1000ML 1,000 ML IV SCH (15:00)
[2020-11-21] MEDS ORDERED: PROMETHAZINE HCL 25 MG/ML 1ML AMPULE IM SCH (15:00)
[2020-11-21 15:24] LABS: BASOPHILS % (AUTO) 0.8 % (0.0-5.0); EOSINOPHILS % (AUTO) 2.4 % (0.0-8.0); HEMATOCRIT 49.7 % (42-54); LYMPHOCYTES % (AUTO) 38.3 % (21.0-51.0); MEAN CORPUSCULAR HEMOGLOBIN 31.8 pg (27.0-33.0); MEAN CORPUSCULAR HGB CONC 34.2 g/dL (32.0-36.0); MEAN CORPUSCULAR VOLUME 92.9 fL (79-99); MONOCYTES % (AUTO) 6.5 % (3.0-13.0); NEUTROPHILS % (AUTO) 51.3 % (40.0-77.0); PLATELET COUNT (AUTO) 238 K/uL (130-400); RED BLOOD CELL COUNT(AUTO) 5.35 MIL/uL (4.50-6.20); RED CELL DISTRIBUTION WIDTH 12.9 % (11.0-15.5); WHITE BLOOD COUNT (AUTO) 11.1 K/uL (4.8-10.8)
[2020-11-21 15:35] LABS: CREATININE 1.1 mg/dL (0.5-1.5); POTASSIUM 3.2 mmol/L (3.5-5.1)
[2020-11-21] MEDS ORDERED: 0.9%NACL 50ML 50 ML IV ONE (15:35)
[2020-11-21 15:40] LABS: ALBUMIN 3.7 g/dL (3.5-5.0); BILIRUBIN,TOTAL 0.8 mg/dL (0.2-1.0); CRP QUANTITATIVE 7.8 mg/L (0.00-9.0); TOTAL PROTEIN, SERUM 7.7 g/dL (6.0-8.3)
[2020-11-21] MEDS ORDERED: POTASSIUM BICARB/CIT AC 25 MEQ TABLET.EFF PO ONE (16:00)
[2020-11-21 17:08] LABS: ABG BASE EXCESS -1.6 mmol/L (-2.0-3.0); ABG HCO3 22.9 mmol/L (21.0-28.0); ABG OXYGEN SATURATION 95.5 % (95.0-99.0); ABG PCO2 38 mmHg (35-48)
[2020-11-21] MEDS ORDERED: MECL-226 PO (17:17)
[2020-11-21 17:40] VITALS: BP 135/76
== END 2020-11-21 17:45 | disposition home or self-care (01) ==
LOC: EDH 14:39
DX: R42 Dizziness and giddiness (principal); E87.6 Hypokalemia; Z20.822 Contact with and (suspected) exposure to COVID-19; E66.9 Obesity, unspecified; Z79.01 Long term (current) use of anticoagulants; Z79.52 Long term (current) use of systemic steroids
CPT/HCPCS: 36415; 36600; 70450; 71045; 80053; 82803; 84484; 85025; 86140; 87635; 93005; 96360; 96361; 96372; 99285; C9803; J2550; J7030

== ENCOUNTER 2021-04-13 10:18 | Emergency (ER) | payer OTHER ==
[~2021-04-13] VITALS: Ht 157.5 cm; Wt 90.7 kg
[~2021-04-13 10:18] MED LIST changes: +MECL-226 PO
[2021-04-13] MEDS ORDERED: IBUPROFEN 800 MG TAB PO ONE (12:30)
[2021-04-13] MEDS ORDERED: LIDOCAINE HCL 1% 20 ML VIAL INJ SCH (12:30)
[2021-04-13] MEDS ORDERED: LIDOCAINE HCL MPF 1% 5ML VIAL ONE (12:36)
[2021-04-13] MEDS ORDERED: CEPH500B PO (13:52)
[2021-04-13] MEDS ORDERED: IBUP-2077 PO (13:52)
[2021-04-13 14:21] VITALS: BP 137/89
== END 2021-04-13 14:23 | disposition home or self-care (01) ==
LOC: EDH 10:18
DX: S81.812A Laceration without foreign body, left lower leg, initial encounter (principal); E66.9 Obesity, unspecified; Z79.01 Long term (current) use of anticoagulants; Z79.1 Long term (current) use of non-steroidal anti-inflammatories (NSAID); Z79.52 Long term (current) use of systemic steroids; Z68.36 Body mass index [BMI] 36.0-36.9, adult; V29.49XA Motorcycle driver injured in collision with other motor vehicles in traffic accident, initial encounter; Y93.89 Activity, other specified; Y92.89 Other specified places as the place of occurrence of the external cause; Y99.8 Other external cause status
CPT/HCPCS: 12002; 73590; 99283; J3490